=== PATIENT | female | born 1995 | race Caucasian/White ===

== ENCOUNTER 2021-10-28 11:29 | Emergency (ER) | payer BC ==
[2021-10-28 13:42] LABS: HEMOGLOBIN 14.7 gm/dl (12.3-15.3); RED BLOOD COUNT 4.66 M/UL (4.00-5.10); WHITE BLOOD COUNT 4.4 K/UL (4.5-11.0)
[2021-10-28 14:03] LABS: ADENOVIRUS F 40/41 Not Detected (Negative); ASTROVIRUS Not Detected (Negative); CAMPYLOBACTER Not Detected (Negative); CRYPTOSPORIDIUM Not Detected (Negative); E.COLI 0157 Not Detected (Negative); ENTAMOEBA HISTOLYTICA Not Detected (Negative); ENTEROAGGREGATIVE E.COLI (EAEC Not Detected (Negative); ENTEROPATHOGENIC E.COLI (EPEC) Not Detected (Negative); ENTEROTOXIGENIC E.COLI (ETEC) Not Detected (Negative); GIARDIA LAMBLIA Not Detected (Negative); NOROVIRUS GI/GII Not Detected (Negative); PLESIOMONAS SHIGELLOIDES Not Detected (Negative); SALMONELLA Not Detected (Negative); SHIG/ENTEROINVAS.ECOLI (EIEC) Not Detected (Negative); SHIGA-LIK TOX.PRO.E.COLI (STEC Not Detected (Negative); VIBRIO Not Detected (Negative); VIBRIO CHOLERAE Not Detected (Negative); YERSINIA ENTEROCOLITICA Not Detected (Negative)
[2021-10-28 14:11] LABS: BUN/CREATININE RATIO 14 (0-10)
[2021-10-28 15:56] LABS: CLOSTRIDIUM DIFFICILE TOX A/B Not Detected (Negative); ROTOVIRUS A DETECTED (Negative); SAPOVIRUS DETECTED (Negative)
[2021-10-28] MEDS ORDERED: ZOFRAN 4 MG TAB4 MG PO (16:04)
[2021-10-28] MEDS ORDERED: BENTYL 20MG TAB20 MG PO (16:04)
== END 2021-10-28 16:58 | disposition home or self-care (01) ==
LOC: ER1 11:29
PROVIDERS: Physician Assistant
DX: B34.8 Other viral infections of unspecified site (principal); R10.9 Unspecified abdominal pain; R10.814 Left lower quadrant abdominal tenderness; R10.813 Right lower quadrant abdominal tenderness; R11.2 Nausea with vomiting, unspecified; R19.7 Diarrhea, unspecified
CPT/HCPCS: 80053; 81001; 84703; 85025; 87507; 99284; Q9967